=== PATIENT | female | born 1960 | race Caucasian/White ===

== ENCOUNTER 2024-07-16 08:00 | Inpatient (IN) | payer MEDICAID ==
[2024-07-09 12:36] LABS: BASOPHILS # (AUTO) 0.1 X10'3 (0-0.2); BASOPHILS % (AUTO) 0.7 % (0-1); EOSINOPHILS # (AUTO) 0.1 X10'3 (0-0.9); LYMPHOCYTES # (AUTO) 3.3 X10'3 (1.1-4.8); LYMPHOCYTES % (AUTO) 33.3 % (21-51); MEAN CORPUSCULAR HEMOGLOBIN 32.3 PG (27.0-31.0); MEAN CORPUSCULAR HGB CONC 34.2 g/dL (33.0-36.5); MEAN CORPUSCULAR VOLUME 94.5 FL (78-98); MEAN PLATELET VOLUME 8.4 FL (7.4-10.4); MONOCYTES # (AUTO) 0.6 X10'3 (0-0.9); MONOCYTES % (AUTO) 6.2 % (2-12); NEUTROPHILS # (AUTO) 5.8 X10'3 (1.8-7.7); NEUTROPHILS % (AUTO) 58.8 % (42-75); PRE OP HEMATOCRIT 47.2 % (35.0-45.0); PRE OP HEMOGLOBIN 16.1 g/dL (12.0-16.0); PRE OP PLATELET COUNT 291 X10'3 (140-440); PRE OP WHITE BLOOD COUNT 9.8 10'3 (4.8-10.8); RED CELL DISTRIBUTION WIDTH 13.7 % (11.5-14.5)
[2024-07-09 12:47] LABS: PRE OP PROTIME 10.2 SECONDS (9.0-12.0)
--- NOTE | 2024-07-09 12:55 | RADIOLOGY REPORT ---
EXAM: DI CHEST,TWO VIEWS CLINICAL HISTORY: pain COMPARISON: None TECHNIQUE: Frontal and lateral view of the chest was obtained FINDINGS: Lines and Tubes: None Lungs: No focal consolidation. Pleura: No effusion. No pneumothorax. Cardiomediastinal contours: Unremarkable Bones: No acute osseous abnormality. IMPRESSION: No acute cardiopulmonary disease.
[2024-07-09 12:56] LABS: ALBUMIN 3.8 G/DL (3.4-5.0); ALBUMIN/GLOBULIN RATIO 0.9 (1.1-1.5); ALKALINE PHOSPHATASE 114 IU/L (46-116); BLOOD UREA NITROGEN 14 MG/DL (7-18); BUN/CREATININE RATIO 13.5 (10.0-20.0); CALCIUM 9.5 MG/DL (8.5-10.1); CHLORIDE 96 MMOL/L (99-107); CREATININE 1.04 MG/DL (0.40-0.90); PRE OP ALT 25 U/L (30-65); PRE OP ANION GAP 6 (8-16); PRE OP AST 16 U/L (10-37); PRE OP BILIRUB, TOTAL 0.5 MG/DL (0.0-1.0); PRE OP POTASSIUM 4.3 MMOL/L (3.4-5.1); PRE OP SODIUM 131 MMOL/L (135-145); TOTAL CARBON DIOXIDE 29.2 MMOL/L (24-32); TOTAL PROTEIN 7.9 G/DL (6.4-8.2); eGFR 54 ML/MIN
[2024-07-09 12:58] LABS: PRE OP GLUCOSE 98 MG/DL (70-104)
[2024-07-10 09:47] LABS: BILIRUBIN,URINE NEGATIVE (Neg); CLARITY,URINE CLOUDY (Clear); COLOR,URINE YELLOW (Yellow); GLUCOSE, URINE NEGATIVE (Neg); KETONES,URINE NEGATIVE (Neg); LEUKOCYTE ESTERASE ,URINE NEGATIVE (Neg); OCCULT BLOOD,URINE NEGATIVE (Neg); PROTEIN,URINE NEGATIVE (Neg); UROBILINOGEN,URINE 0.2 E.U/dL (0.2-1.0)
[2024-07-10 09:55] LABS: UA COLLECTION TYPE CLN CATCH MIDSTREAM
[2024-07-10 09:56] LABS: NITRITES, URINE NEGATIVE (Neg)
[2024-07-10 10:10] LABS: BACTERIA,URINE 4+ /HPF (Neg); RBC,URINE 0-2 /HPF (0-2); SQUAMOUS EPITHELIAL CELL,UR FEW /LPF (FEW); WBC,URINE 0-4 /HPF (0-4)
[~2024-07-16] VITALS: Ht 167.6 cm; Wt 74.0 kg
[2024-07-16] MEDS: ceFOXitin sod/dextrose 2g/50ml 50 ML IV ONE (05:30)
[~2024-07-16 08:00] MED LIST: HYDR12.55 PO; LISI40TA13 PO; LYR75C PO; acetaminophen 325mg tablet PO ONE
[2024-07-16 08:55] VITALS: BP 132/70; PULSE 63; RESP 16; TEMP 98; TEMP 98.1; O2SAT 98
[2024-07-16] MEDS ORDERED: iohexol 350 MG/ML 50ML vial IV ONE (09:02)
[2024-07-16] MEDS ORDERED: iohexol 350MG/ML 100ml bottle IV ONE (09:02)
[2024-07-16] MEDS: ringers solution, lacted 1,000 ML IV SCH (10:08)
[2024-07-16] MEDS: famotidine 20mg tablet PO ONE (10:09)
--- NOTE | 2024-07-16 11:25 | RADIOLOGY REPORT ---
Examination: CT CTA ABDOMEN LOWER EXTR RUNOFF CLINICAL HISTORY: AORTO BI FEMORAL BYPASS GRAFT Comparison: None Technique: Using helical technique, CT data from the lung bases through the toes was obtained during rapid IV contrast infusion. The examination was timed to the arterial system to generate a CT angiogr aphic study. 3D images were generated at an independent work station. Dose reduction techniques inclu ded automated exposure control. Radiation Dose Information: CT Dose: CTDI volume is 4.4 mGy. Dose-length product is 1526.2 mGy*cm Findings: Vascular: Abdominal aorta: Ectasia of the infrarenal abdominal aorta measuring 2.7 cm. Patent. Contains calcifi c and noncalcific plaque.Celiac artery: Patent SMA: Patent Renal arteries: Left renal artery is patent. High-grade stenosis of the right kidney. UCHE: Patent Right lower extremity: Common iliac artery: Patent External iliac artery: Patent Internal iliac artery: Patent Common femoral artery: Patent Profunda femoral artery: Patent Superficial femoral artery: Patent Popliteal artery: Patent Anterior tibial artery: Patent Peroneal tibial trunk: Patent Peroneal artery: Patent Posterior tibial artery: Patent Dorsalis pedis artery: Patent Left lower extremity: Common iliac artery: Severe multiple high-grade tandem stenoses. External iliac artery: Patent Internal iliac artery: Patent Common femoral artery: Patent Profunda femoral artery: Patent Superficial femoral artery: Patent Popliteal artery: Patent Anterior tibial artery: Patent Peroneal tibial trunk: Patent Peroneal artery: Patent Posterior tibial artery: Patent Dorsalis pedis artery: Patent Portal/mesenteric veins: normal Abdominal systemic veins: normal Abdomen/Pelvis: Liver: The liver is normal in size and morphology,. No focal hepatic lesion. The portal veins are pat ent. Biliary System: Gallbladder: Absent Bile Ducts: No intrahepatic or extrahepatic biliary ductal dilation. Spleen: No splenomegaly or focal splenic lesion. Pancreas: No masses or ductal dilation. Adrenals: Normal. Urinary System: Kidneys and Ureters: No hydronephrosis. Atrophic right kidney. Left kidney is unremarkable.Bladder: N ormal. GI System: Diverticulosis. Appendix is unremarkable. Vasculature: Arteries: Extensive atherosclerotic disease. Lymph nodes: No lymphadenopathy. Peritoneal cavity and surface: No free fluid. No pneumoperitoneum. Soft Tissues: Normal. Reproductive Organs: Hysterectomy. Bones: No acute fracture or aggressive osseous lesion. Impression: Extensive atherosclerotic disease of the aorta which is patent. There is ectasia of the infrarenal ab dominal aorta containing calcific and noncalcific plaque measuring up to 2.7 cm in maximal diameter. High-grade stenosis of the right renal artery with atrophy of the right kidney. Severe high-grade multiple tandem stenoses of the left common iliac artery. 3-vessel arterial flow is present in the bilateral feet.
[2024-07-16] MEDS ORDERED: rocuronium 10mg/ml inj IV ONE (13:51)
[2024-07-16] MEDS ORDERED: propofol inj 0 ML IV ONE (13:51)
[2024-07-16] MEDS ORDERED: ondansetron/PF 4mg/2ml inj ONE (13:51)
[2024-07-16] MEDS ORDERED: LIDOcaine 2% (20mg/ml) 5ml vial ONE (13:51)
[2024-07-16] MEDS ORDERED: iohexol 300 MG/1 ML 50ml polymer ONE (13:52)
[2024-07-16] MEDS ORDERED: heparin 10,000 units/1 ML INJ ONE (13:52)
--- NOTE | 2024-07-16 14:46 | PROGRESS NOTE ---
Progress Note ID Providers to CC ~ Progress Note Progress Note: no icu beds-case rescheduled for tuesday MARY MCMILLAN MD July 16, 2024 14:46
[2024-07-16 16:45] VITALS: BP 124/69; PULSE 62; RESP 16; TEMP 97.2; O2SAT 96; O2SAT 97
[2024-07-16 20:00] VITALS: RESP 16; O2SAT 96
[2024-07-16] MEDS: pregabalin 75mg capsule PO SCH (21:02)
[2024-07-16] MEDS: dextrose 5%-lactated ringers 1,000 ML IV SCH (21:02)
[2024-07-16 22:00] VITALS: BP 120/61; PULSE 60; RESP 16; TEMP 98; O2SAT 95
[2024-07-17] VITALS (23 sets, daily range): BP systolic 111–163; BP diastolic 51–74; PULSE 55–75; RESP 10–19; TEMP 98.5; O2SAT 91–99
[2024-07-17 06:04] LABS: BASOPHILS # (AUTO) 0.1 X10'3 (0-0.2); BASOPHILS % (AUTO) 0.8 % (0-1); EOSINOPHILS # (AUTO) 0.2 X10'3 (0-0.9); EOSINOPHILS % (AUTO) 2.9 % (0-6); HEMATOCRIT 39.7 % (35.0-45.0); HEMOGLOBIN 13.6 g/dl (12.0-16.0); LYMPHOCYTES # (AUTO) 2.7 X10'3 (1.1-4.8); LYMPHOCYTES % (AUTO) 37.6 % (21-51); MEAN CORPUSCULAR HEMOGLOBIN 32.1 PG (27.0-31.0); MEAN CORPUSCULAR HGB CONC 34.2 g/dL (33.0-36.5); MEAN CORPUSCULAR VOLUME 93.7 FL (78-98); MEAN PLATELET VOLUME 8.2 FL (7.4-10.4); MONOCYTES # (AUTO) 0.7 X10'3 (0-0.9); MONOCYTES % (AUTO) 10.3 % (2-12); NEUTROPHILS # (AUTO) 3.4 X10'3 (1.8-7.7); NEUTROPHILS % (AUTO) 48.4 % (42-75); PLATELET COUNT 259 X10'3 (140-440); RED BLOOD COUNT 4.24 X10'6 (4.20-5.60); RED CELL DISTRIBUTION WIDTH 13.8 % (11.5-14.5); WHITE BLOOD COUNT 7.1 X10'3 (4.5-11.0)
[2024-07-17 06:14] LABS: APTT 26 SECONDS (22-32); PROTHROMBIN TIME 9.9 SECONDS (9.0-12.0)
[2024-07-17 06:22] LABS: ALANINE AMINOTRANSFERASE 23 U/L (12-78); ALBUMIN 2.9 G/DL (3.4-5.0); ALBUMIN/GLOBULIN RATIO 0.9 (1.1-1.5); ALKALINE PHOSPHATASE 91 IU/L (46-116); ANION GAP 8 (8-16); ASPARTATE AMINO TRANSFERASE 14 U/L (10-37); BILIRUBIN,TOTAL 0.4 MG/DL (0.1-1.0); BLOOD UREA NITROGEN 13 MG/DL (7-18); BUN/CREATININE RATIO 13.3 (10.0-20.0); CALCIUM 8.6 MG/DL (8.5-10.1); CHLORIDE 100 MMOL/L (99-107); CREATININE 0.98 MG/DL (0.40-0.90); GLUCOSE 107 MG/DL (70-104); POTASSIUM 4.2 MMOL/L (3.5-5.1); SODIUM 134 MMOL/L (135-145); TOTAL CARBON DIOXIDE 25.7 MMOL/L (24-32); TOTAL PROTEIN 6.2 G/DL (6.4-8.2); eCRCL 55 ML/MIN; eGFR 57 ML/MIN
[2024-07-17] MEDS ORDERED: heparin 10,000 units/1 ML INJ ONE (07:08)
[2024-07-17] MEDS ORDERED: midazolam 1 mg/ML 2ml injection ONE (08:46)
[2024-07-17] MEDS ORDERED: fentaNYL /PF 50mcg/ml 5ml ampule ONE (08:47)
[2024-07-17] MEDS ORDERED: rocuronium 10mg/ml inj IV ONE (08:47)
[2024-07-17] MEDS ORDERED: propofol inj 20 ML IV ONE (08:47)
[2024-07-17] MEDS ORDERED: ePHEDrine 50MG/ML INJ. ONE (08:49)
[2024-07-17] MEDS ORDERED: sevoflurane 250ml liquid IH ONE (08:54)
[2024-07-17] MEDS ORDERED: HYDROmorphone/PF 0.2 MG/ML SYRINGE IV PRN ×2 (08:55)
[2024-07-17] MEDS ORDERED: hydrALAZINE 20mg/ml inj. IV PRN (08:55)
[2024-07-17] MEDS ORDERED: labetalol 20mg/4ml (5mg/ml) syringe IV PRN (08:55)
[2024-07-17] MEDS ORDERED: morphine 2 MG/ML inj. syringe IV PRN (08:55)
[2024-07-17] MEDS ORDERED: ondansetron/PF 4mg/2ml inj IV PRN ×2 (08:55→13:30)
[2024-07-17] MEDS ORDERED: ceFAZolin 1000mg inj ONE ×2 (09:25)
[2024-07-17] MEDS ORDERED: dexamethasone sod phosphate 4mg/ml inj. ONE (09:30)
[2024-07-17] MEDS ORDERED: labetalol 20mg/4ml (5mg/ml) syringe IV ONE (10:00)
[2024-07-17] MEDS ORDERED: heparin 1,000unit/ml 10ml vial 10 ML ONE (11:19)
[2024-07-17] MEDS ORDERED: acetaminophen 1,000mg/100ml IV 100 ML IV ONE (11:49)
[2024-07-17] MEDS ORDERED: ondansetron/PF 4mg/2ml inj ONE (11:52)
[2024-07-17] MEDS ORDERED: BUPIVACAINE liposomal/PF 13.3 MG/ML 10mL vial IM ONE (11:59)
[2024-07-17] MEDS ORDERED: BUPIVAcaine 2.5mg/ml inj 50ml vial (contains preservative) ONE (11:59)
[2024-07-17] MEDS ORDERED: sugammadex 200mg/2ml injection IV ONE (12:22)
[2024-07-17 12:35] LABS: APTT > 139 SECONDS (22-32)
[2024-07-17 12:52] LABS: ISTAT CREATININE 0.8 mg/dL (0.6-1.1); ISTAT IONIZED CALCIUM 1.21 mmol/L (1.03-1.32); POC BUN/CREATININE RATIO 11.3 (6.6-38.0)
--- NOTE | 2024-07-17 12:58 | RADIOLOGY REPORT ---
EXAM: DI CHEST,SINGLE VIEW Indication: post op Technique: Single frontal view of the chest was obtained Comparison: None FINDINGS: Lines and Tubes: Right internal jugular central venous catheter tip projects over the superior vena c lorie. Enteric tube tip projects over the expected region of the stomach. Lungs: No focal consolidation. Pleura: No effusion. No pneumothorax. Cardiomediastinal contours: Unremarkable Bones: No acute osseous abnormality. IMPRESSION: Lines and tubes in appropriate position.
[2024-07-17] MEDS: ringers solution, lacted 1,000 ML IV SCH (13:00)
[2024-07-17] MEDS: morphine 4 MG/ML inj SYRINge IV PRN (13:21)
--- NOTE | 2024-07-17 13:24 | OPERATIVE REPORT ---
Operative Report Providers to CC ~ Date of Procedure: July 17, 2024 Pre-Operative Diagnosis: PAD Post-Operative Diagnosis SAME as PRE-Op Procedure Performed ilio-left fem bypass with goretex Surgeon: chico Button Broacher katy Anesthesiologist: [place] Type of Anesthesia: General Findings: occluded left iliac Estimated Blood Loss: 300 ml Specimen Removed: aortic plaque MARY MCMILLAN MD July 17, 2024 13:24
[2024-07-17] MEDS ORDERED: naloxone 0.4 mg/ml inj IV PRN (13:30)
[2024-07-17] MEDS ORDERED: ketorolac trometh 15mg/ml vial 15 MG/ML ML IV PRN (13:30)
[2024-07-17] MEDS ORDERED: HYDROmorphone inj. 0.5 MG/0.5 ML DISP.SYRIN IV PRN (13:30)
[2024-07-17 13:44] LABS: ABG BASE EXCESS -2.8 mmol/L (-2.0-3.0); ABG HCO3 22.8 mmol/L (21.0-28.0); ABG OXYGEN SATURATION 91.8 % (94.0-98.0); ABG PH (T) 7.359 (7.350-7.450); ABG PO2 (T) 60.6 mmHg (83.0-108.0); FHHb 8.1 % (0.0-5.0); FLOW 6 L/min; FMetHb 0.3 % (0.0-1.5); FO2Hb 90.6 % (94.0-98.0); MODE MASK - SIMPLE; PATIENT TEMPERATURE 36.3; TOTAL HEMOGLOBIN 14.9 G/dl (12.0-16.0)
[2024-07-17] MEDS: ketorolac trometh 30MG/ML vial 30 MG/ML VIAL IV PRN (15:02)
[2024-07-17] MEDS: metoclopramide 5 mg/ml inj IV SCH (15:17)
[2024-07-17] MEDS: albumin (Human) 5% 250ml 250 ML IV ONE ×2 (15:32→16:36)
[2024-07-17] MEDS: ceFOXitin sod/dextrose 2g/50ml 50 ML IV SCH (16:40)
[2024-07-17] MEDS: potassium CL 20mEq in D5-1/2NS 1,000 ML IV SCH (16:40)
[2024-07-18] VITALS (16 sets, daily range): BP systolic 91–147; BP diastolic 53–91; PULSE 72–89; RESP 15–23; TEMP 97.1–98; O2SAT 89–97
[2024-07-18 02:35] LABS: BASOPHILS # (AUTO) 0.1 X10'3 (0-0.2); BASOPHILS % (AUTO) 0.5 % (0-1); EOSINOPHILS % (AUTO) 0 % (0-6); HEMATOCRIT 34.2 % (35.0-45.0); LYMPHOCYTES # (AUTO) 1.6 X10'3 (1.1-4.8); LYMPHOCYTES % (AUTO) 9.9 % (21-51); MEAN CORPUSCULAR HEMOGLOBIN 32.8 PG (27.0-31.0); MEAN CORPUSCULAR VOLUME 93.6 FL (78-98); MEAN PLATELET VOLUME 7.6 FL (7.4-10.4); MONOCYTES # (AUTO) 0.9 X10'3 (0-0.9); MONOCYTES % (AUTO) 5.7 % (2-12); NEUTROPHILS # (AUTO) 13.2 X10'3 (1.8-7.7); NEUTROPHILS % (AUTO) 83.9 % (42-75); PLATELET COUNT 205 X10'3 (140-440); RED BLOOD COUNT 3.66 X10'6 (4.20-5.60); RED CELL DISTRIBUTION WIDTH 13.6 % (11.5-14.5); WHITE BLOOD COUNT 15.8 X10'3 (4.5-11.0)
[2024-07-18 02:43] LABS: ANION GAP 6 (8-16); BLOOD UREA NITROGEN 9 MG/DL (7-18); BUN/CREATININE RATIO 7.9 (10.0-20.0); CHLORIDE 102 MMOL/L (99-107); CREATININE 1.14 MG/DL (0.40-0.90); GLUCOSE 170 MG/DL (70-104); POTASSIUM 4.5 MMOL/L (3.5-5.1); SODIUM 133 MMOL/L (135-145); TOTAL CARBON DIOXIDE 25.3 MMOL/L (24-32); eCRCL 47 ML/MIN; eGFR 48 ML/MIN
--- NOTE | 2024-07-18 05:59 | OPERATIVE REPORT ---
DATE OF SURGERY: 07/17/2024 DICTATING PHYSICIAN: Lyndon Laguerre MD PREOPERATIVE DIAGNOSIS: Multilevel peripheral vascular disease with claudication symptoms. POSTOPERATIVE DIAGNOSIS: Multilevel peripheral vascular disease with claudication symptoms. PROCEDURES PERFORMED: Left iliofemoral bypass using a 7 to 4 tapered [place]-Hever graft. SURGEON: Lyndon Laguerre MD FOLDED TOWEL MACHINE OPERATOR: Jarad. ANESTHESIA: General/Dr. Mcguire. DRAINS: None. INDICATIONS FOR OPERATION: A 63-year-old female with persistent claudication symptoms, found to have occluded left iliac, taken to surgery for a left iliofemoral bypass. INTRAOPERATIVE FINDINGS: Iliac occlusion. The patient had some plaque in the left SFA. DESCRIPTION OF PROCEDURE: The patient was placed supine on the operating table. After induction of general anesthesia and placement of an endotracheal tube, the abdomen was then prepped and draped. Longitudinal incision was made in the left groin and extended down through the subcutaneous fat and fascia. Femoral sheath was identified and incised. Common femoral, SFA and profunda subsequently isolated. longitudinal incision was subsequently made. Abdominal cavity entered. The abdomen was explored and adhesions were taken down. Self-retaining retractors were subsequently placed. Small bowel was mobilized to the right. Posterior peritoneum was then incised. Distal aorta was subsequently exposed. . Tunnel was then created from the left groin to the retroperitoneum and 4 to 7 tapered graft was passed. The patient was heparinized with several units of heparin. Distal aorta was then occluded just above the iliac bifurcation. Aortic plaque was removed. An end-to-side anastomosis was constructed with running sutures of 5-0 Prolene. Upon completion of the suture line, the graft was then flushed and it flushed well. Attention was then turned to the left groin. Common femoral, SFA and profunda were subsequently occluded. Arteriotomy was then extended proximally and distally, distal to the profunda. An end-to-side anastomosis was constructed using running suture of 5-0 Prolene. Flow was then reestablished to the left lower extremity. Graft was flushed prior to reestablishing flow. Hemostasis was obtained. Posterior peritoneum was then closed with running suture of 2-0 Vicryl. Adomen was irrigated with large amount of antibiotic-containing solution. Rectal fascia was closed with running sutures of loop PDS and skin was closed with clips. Attention was turned to the left groin. Hemostasis was found to be adequate. The wound was closed in layers and skin closed with clips. Dressing was applied. The patient was transferred to recovery in stable condition. Lyndon Laguerre MD TID: [id number] RECEIPT: [id number] KB/VUN/MAN
[2024-07-18] MEDS ORDERED: aspirin 300mg supp.rect RC SCH (08:00)
[2024-07-18] MEDS: HYDROcodone/acetaminophen 5mg/325mg tablet PO PRN (08:26)
--- NOTE | 2024-07-18 10:02 | PATHOLOGY REPORT ---
[facility] [address] [place] [address] SURGICAL PATHOLOGY REPORT CaseNumber: [id number] Surgeon:Lyndon Laguerre N.P. CLINICAL INFORMATION CLINICAL INFORMATION: Vascular insuffiency. DIAGNOSIS DIAGNOSIS: ARTERY, LEFT FEMORAL; ENDARTERECTOMY - MODERATELY CALCIFIED ATHEROSCLEROTIC PLAQUE. (GROSS ONLY) MICROSCOPIC DESCRIPTION MICROSCOPIC DESCRIPTION: Not performed. (jf) GROSS DESCRIPTION GROSS DESCRIPTION: Received in a container of formalin labeled with the patient's name, number, and " Femoral plaque" is a 1 cm aggregate of irregularly shaped pieces of moderately calcified atherosclero tic plaque. A discrete mass lesion is not identified. Thrombus is not identified. No sections. Th e time at which the specimen was removed was 1140. The time at which the specimen was placed in forma luda was 1145. Electronically signed by: Kevin Brown, 07/18/2024 9:29:00 AM
[2024-07-18] MEDS: aspirin 81mg tab.chew PO SCH (10:54)
--- NOTE | 2024-07-18 18:05 | PROGRESS NOTE ---
Progress Note ID Providers to CC ~ Progress Note Progress Note: PAIN IMPROVING/VSS/ABD-NONDISTENDED/LABS NOTED A/P 1. S/P AORTO-LEFT FEM-DOING WELL/CONT PT MARY MCMILLAN MD July 18, 2024 18:05
[2024-07-19] VITALS (8 sets, daily range): BP systolic 109–182; BP diastolic 67–88; PULSE 78–83; RESP 14–18; TEMP 97.1–98.9; O2SAT 90–96
[2024-07-19 07:22] LABS: BASOPHILS # (AUTO) 0.1 X10'3 (0-0.2); BASOPHILS % (AUTO) 0.4 % (0-1); EOSINOPHILS # (AUTO) 0.2 X10'3 (0-0.9); EOSINOPHILS % (AUTO) 1.2 % (0-6); HEMATOCRIT 34.3 % (35.0-45.0); HEMOGLOBIN 11.6 g/dl (12.0-16.0); LYMPHOCYTES # (AUTO) 2.6 X10'3 (1.1-4.8); LYMPHOCYTES % (AUTO) 18.9 % (21-51); MEAN CORPUSCULAR HEMOGLOBIN 31.9 PG (27.0-31.0); MEAN CORPUSCULAR HGB CONC 33.8 g/dL (33.0-36.5); MEAN CORPUSCULAR VOLUME 94.6 FL (78-98); MEAN PLATELET VOLUME 8.6 FL (7.4-10.4); MONOCYTES # (AUTO) 1.2 X10'3 (0-0.9); MONOCYTES % (AUTO) 8.9 % (2-12); NEUTROPHILS # (AUTO) 9.8 X10'3 (1.8-7.7); NEUTROPHILS % (AUTO) 70.6 % (42-75); PLATELET COUNT 205 X10'3 (140-440); RED BLOOD COUNT 3.63 X10'6 (4.20-5.60); WHITE BLOOD COUNT 13.9 X10'3 (4.5-11.0)
[2024-07-19 07:48] LABS: ALBUMIN 2.9 G/DL (3.4-5.0); ANION GAP 8 (8-16); BLOOD UREA NITROGEN 6 MG/DL (7-18); BUN/CREATININE RATIO 6.1 (10.0-20.0); CALCIUM 8.2 MG/DL (8.5-10.1); CHLORIDE 105 MMOL/L (99-107); CREATININE 0.98 MG/DL (0.40-0.90); GLUCOSE 93 MG/DL (70-104); POTASSIUM 4.6 MMOL/L (3.5-5.1); SODIUM 136 MMOL/L (135-145); TOTAL CARBON DIOXIDE 23.2 MMOL/L (24-32); eCRCL 55 ML/MIN; eGFR 57 ML/MIN
[2024-07-19] MEDS: HYDROchlorothiazide 12.5mg capsule PO SCH (16:23)
[2024-07-19] MEDS: lisinopril 20mg tablet PO SCH (16:24)
--- NOTE | 2024-07-19 19:56 | PROGRESS NOTE ---
Progress Note ID Providers to CC ~ Progress Note Progress Note: doing well/cont pt MARY MCMILLAN MD July 19, 2024 19:56
[2024-07-19] MEDS: magnesium hydroxide 30ml (MOM) UD suspension PO SCH (20:13)
[2024-07-20] VITALS (7 sets, daily range): BP systolic 117–139; BP diastolic 65–73; PULSE 67–81; RESP 16–18; TEMP 97.5–98.2; O2SAT 94–98
[2024-07-20 06:29] LABS: BASOPHILS # (AUTO) 0.1 X10'3 (0-0.2); BASOPHILS % (AUTO) 0.7 % (0-1); EOSINOPHILS # (AUTO) 0.5 X10'3 (0-0.9); EOSINOPHILS % (AUTO) 4.2 % (0-6); HEMATOCRIT 32.4 % (35.0-45.0); HEMOGLOBIN 11.2 g/dl (12.0-16.0); LYMPHOCYTES # (AUTO) 2.4 X10'3 (1.1-4.8); LYMPHOCYTES % (AUTO) 22.6 % (21-51); MEAN CORPUSCULAR HEMOGLOBIN 32.4 PG (27.0-31.0); MEAN CORPUSCULAR HGB CONC 34.5 g/dL (33.0-36.5); MONOCYTES # (AUTO) 0.9 X10'3 (0-0.9); MONOCYTES % (AUTO) 7.9 % (2-12); NEUTROPHILS % (AUTO) 64.6 % (42-75); PLATELET COUNT 200 X10'3 (140-440); RED BLOOD COUNT 3.45 X10'6 (4.20-5.60); RED CELL DISTRIBUTION WIDTH 13.8 % (11.5-14.5); WHITE BLOOD COUNT 10.8 X10'3 (4.5-11.0)
[2024-07-20 06:39] LABS: ALBUMIN 2.6 G/DL (3.4-5.0); ANION GAP 8 (8-16); BLOOD UREA NITROGEN 6 MG/DL (7-18); BUN/CREATININE RATIO 6.8 (10.0-20.0); CALCIUM 8.4 MG/DL (8.5-10.1); CHLORIDE 101 MMOL/L (99-107); CREATININE 0.88 MG/DL (0.40-0.90); GLUCOSE 105 MG/DL (70-104); SODIUM 135 MMOL/L (135-145); TOTAL CARBON DIOXIDE 26.1 MMOL/L (24-32); eCRCL 61 ML/MIN; eGFR 65 ML/MIN
--- NOTE | 2024-07-20 18:33 | PROGRESS NOTE ---
Progress Note ID Providers to CC ~ Progress Note Progress Note: doing well/home in am MARY MCMILLAN MD July 20, 2024 18:33
[2024-07-21 02:00] VITALS: BP 143/71; PULSE 68; RESP 18; TEMP 97.8; O2SAT 93
[2024-07-21 06:00] VITALS: BP 123/67; PULSE 65; RESP 21; TEMP 96.9; O2SAT 98
[2024-07-21 06:47] LABS: BASOPHILS # (AUTO) 0.1 X10'3 (0-0.2); BASOPHILS % (AUTO) 0.9 % (0-1); EOSINOPHILS # (AUTO) 0.5 X10'3 (0-0.9); EOSINOPHILS % (AUTO) 4.6 % (0-6); HEMATOCRIT 33.7 % (35.0-45.0); HEMOGLOBIN 11.7 g/dl (12.0-16.0); LYMPHOCYTES # (AUTO) 3.1 X10'3 (1.1-4.8); LYMPHOCYTES % (AUTO) 30.7 % (21-51); MEAN CORPUSCULAR HEMOGLOBIN 32.7 PG (27.0-31.0); MEAN CORPUSCULAR HGB CONC 34.8 g/dL (33.0-36.5); MEAN CORPUSCULAR VOLUME 93.8 FL (78-98); MEAN PLATELET VOLUME 8.5 FL (7.4-10.4); MONOCYTES # (AUTO) 0.8 X10'3 (0-0.9); MONOCYTES % (AUTO) 7.9 % (2-12); NEUTROPHILS # (AUTO) 5.7 X10'3 (1.8-7.7); NEUTROPHILS % (AUTO) 55.9 % (42-75); PLATELET COUNT 244 X10'3 (140-440); RED CELL DISTRIBUTION WIDTH 13.5 % (11.5-14.5); WHITE BLOOD COUNT 10.2 X10'3 (4.5-11.0)
[2024-07-21 06:56] LABS: ALBUMIN 2.7 G/DL (3.4-5.0); ANION GAP 6 (8-16); BLOOD UREA NITROGEN 7 MG/DL (7-18); BUN/CREATININE RATIO 8.1 (10.0-20.0); CALCIUM 8.5 MG/DL (8.5-10.1); CHLORIDE 99 MMOL/L (99-107); CREATININE 0.86 MG/DL (0.40-0.90); GLUCOSE 92 MG/DL (70-104); SODIUM 131 MMOL/L (135-145); TOTAL CARBON DIOXIDE 26.5 MMOL/L (24-32); eCRCL 63 ML/MIN; eGFR 67 ML/MIN
[2024-07-21 08:00] VITALS: RESP 21; O2SAT 98
[2024-07-21 11:00] VITALS: BP 127/64; PULSE 68; RESP 18; TEMP 97.7; O2SAT 99
[2024-07-21 15:00] VITALS: BP 122/67; PULSE 58; RESP 21; TEMP 97.3; O2SAT 96
[2024-07-21] MEDS ORDERED: DOXY-1 PO (17:35)
[2024-07-21 18:13] VITALS: RESP 18
--- NOTE | 2024-07-21 19:14 | PROGRESS NOTE ---
Progress Note ID Providers to CC ~ Progress Note Progress Note: doing well/dc MARY MCMILLAN MD July 21, 2024 19:14
== END 2024-07-21 18:20 | disposition home or self-care (01) | DRG 169 ==
LOC: PAS IN 08:48 → ORTHO 4S 16:30 → CICU 2S 07-17 10:40 → PCU 3S 07-18 16:19
PROVIDERS: ADMIT Surgery; ATTEND Surgery
PROC: B4201ZZ Computerized Tomography (CT Scan) of Abdominal Aorta using Low Osmolar Contrast (ICD-10-PCS; 2024-07-16)
PROC: B4241ZZ Computerized Tomography (CT Scan) of Superior Mesenteric Artery using Low Osmolar Contrast (ICD-10-PCS; 2024-07-16)
PROC: B4281ZZ Computerized Tomography (CT Scan) of Bilateral Renal Arteries using Low Osmolar Contrast (ICD-10-PCS; 2024-07-16)
PROC: B42H1ZZ Computerized Tomography (CT Scan) of Bilateral Lower Extremity Arteries using Low Osmolar Contrast (ICD-10-PCS; 2024-07-16)
PROC: B4211ZZ Computerized Tomography (CT Scan) of Celiac Artery using Low Osmolar Contrast (ICD-10-PCS; 2024-07-16)
PROC: 041D0JJ Bypass Left Common Iliac Artery to Left Femoral Artery with Synthetic Substitute, Open Approach (ICD-10-PCS; principal; 2024-07-17 08:54)
DX: I70.213 Atherosclerosis of native arteries of extremities with intermittent claudication, bilateral legs (principal); I74.5 Embolism and thrombosis of iliac artery; I70.0 Atherosclerosis of aorta; Z79.899 Other long term (current) drug therapy
CPT/HCPCS: 36415; 36600; 71045; 71046; 75635; 80047; 80048; 80053; 81001; 82803; 82948; 85018; 85025; 85610; 85730; 86885; 86900; 86901; 87077; 87081; 87088; 87186; 92508; 92616; 97110; 97116; 97162; 97530; A4615; A4618; A6213; A6258; A6449; A7000; C1768; G0378; J0131; J0666; J0690; J0694; J1100; J1644; J1885; J2003; J2250; J2270; J2405; J2704; J2765; J3010; J3480; J3490; J7030; J7040; J7120; J7121; P9045; Q9967